=== PATIENT | female | born 1990 | race American Indian/Alaskan Native ===

== ENCOUNTER 2016-10-11 18:58 | Emergency (ER) | payer SELFPAY ==
[2016-10-11 20:44] LABS: Basophils % (Auto) 0.7 % (0.0-1.8); Eosinophils % (Auto) 1.8 % (0.0-4.3); Hematocrit 32.9 % (30.3-42.9); Mean Corpuscular HGB Conc 33 % (30-34); Mean Corpuscular Hemoglobin 31 pg (28-32); Mean Corpuscular Volume 94 fl (79-97); Platelet Count 324 K/mm3 (140-440); Red Blood Count 3.51 M/mm3 (3.65-5.03); White Blood Count 7.4 K/mm3 (4.5-11.0)
[2016-10-11 21:06] LABS: Alanine Aminotransferase 11 units/L (7-56); Alkaline Phosphatase 60 units/L (35-129); Anion Gap 17 mmol/L; Blood Urea Nitrogen 12 mg/dL (7-17); Calcium 9.1 mg/dL (8.4-10.2); Carbon Dioxide 24 mmol/L (22-30); Chloride 103.5 mmol/L (98-107); Glucose 88 mg/dL (65-100); Sodium 140 mmol/L (137-145); Total Protein 7.9 g/dL (6.3-8.2)
[2016-10-11 21:40] LABS: Bacteria,Urine 1+ /HPF (Negative); Bilirubin,Urine NEG (Negative); Blood,Urine MOD (Negative); Ketones,Urine NEG (Negative); Leukocyte Esterase,Urine LG (Negative); Mucus,Urine 3+ /HPF; Nitrite,Urine NEG (Negative)
--- NOTE | 2016-10-11 23:27 | Cat Scan Report ---
FINAL REPORT PROCEDURE: CT HEAD/BRAIN WO CON TECHNIQUE: Computerized tomography of the head was performed without contrast material. HISTORY: syncope COMPARISON: No prior studies are available for comparison. FINDINGS: Skull and scalp: Normal. Paranasal sinuses: Normal. Ventricles and subarachnoid spaces: Normal. Cerebrum: No evidence of hemorrhage, acute infarction or mass . Cerebellum and brainstem: No evidence of hemorrhage, acute infarction or mass. Vasculature: Normal. Comments: None. IMPRESSION: Normal Examination
--- NOTE | 2016-10-12 00:28 | Emergency Department Report ---
HPI - General Chief Complaint: Dizziness Time Seen by Provider: 10/11/16 23:03 - HPI HPI: She is a 26-year-old female with no known medical history presents the ED stating that she had a syncopal episode earlier this morning around 9 AM shows a work. Patient states she was stepping out and walking down the stairs when all of a sudden she blacked out and found this over the bottom of a [address] Patient states she had her one year-old with her when she came to. She denies any chest pain, dizziness, headache prior to blacking out. Patient states she is to episodes of blackout one was in 2014 while she was with her child and the other last year 2015 which she did not seek medical care for. She states she has some pain on her left knee where she thinks she may have hit it. Patient states [facility]. Patient was able to go to work after incident and had no other episodes throughout the day. She denies any fevers/chills/nausea/vomiting/abdominal pains as chest pain or shortness of breath/taken any medications. ED Past Medical Hx - Past Medical History Previous Medical History?: No Hx Hypertension: No Hx Diabetes: No Hx Deep Vein Thrombosis: No Hx Renal Disease: No Hx Sickle Cell Disease: No Hx Seizures: No Hx Asthma: No Hx HIV: No - Surgical History Past Surgical History?: Yes Additional Surgical History: left knee surgery - Social History Smoking Status: Never Smoker Substance Use Type: None - Medications Home Medications: Home Medications Medication Instructions Recorded Confirmed Last Taken Type Vit-Fe Fumar-FA [ 1 tab PO QDAY #30 tablet 10/15/14 Unknown Rx Vitamin] metroNIDAZOLE 0.75% [Metrogel 1 applicatio TP BID #1 tube 10/15/14 Unknown Rx 0.75% TOPICAL] EPINEPHrine [Epipen 2-Sebastien] 0.3 mg IM DAILY PRN #2 ml 03/26/15 Unknown Rx Famotidine [Pepcid] 20 mg PO BID #10 tablet 03/26/15 Unknown Rx diphenhydrAMINE [Benadryl] 50 mg PO Q8HR PRN #20 capsule 03/26/15 Unknown Rx predniSONE [Deltasone] 40 mg PO QDAY #8 tab 03/26/15 Unknown Rx traMADol [Ultram 50 MG tab] 50 mg PO Q6HR PRN #7 tablet 02/12/16 Unknown Rx Nitrofurantoin [place]/M-Cryst 100 mg PO Q12HR #14 capsule 10/12/16 Unknown Rx [Macrobid CAP] ED Review of Systems ROS: Stated complaint: PASS OUT/FELL DOWN STEPS Other details as noted in HPI Constitutional: denies: chills, fever Eyes: denies: eye pain, eye discharge, vision change ENT: denies: ear pain, throat pain Respiratory: denies: cough, shortness of breath, wheezing Cardiovascular: denies: chest pain, palpitations Endocrine: no symptoms reported Gastrointestinal: denies: abdominal pain, nausea, diarrhea Genitourinary: denies: urgency, dysuria, discharge Musculoskeletal: denies: back pain, joint swelling, arthralgia Skin: denies: rash, lesions Neurological: denies: headache, weakness, paresthesias Psychiatric: denies: anxiety, depression Hematological/Lymphatic: denies: easy bleeding, easy bruising Physical Exam - Physical Exam Vital Signs: Vital Signs 10/11/16 10/11/16 10/11/16 19:31 19:49 23:57 Temperature 98.7 F 98.7 F Pulse Rate 55 L 55 L Pulse Rate [ 62 Lying] Pulse Rate [ 70 Sitting] Pulse Rate [ 78 Standing] Respiratory 18 18 Rate Blood Pressure 133/91 Blood Pressure 120/84 [Lying] Blood Pressure 133/91 [Right] Blood Pressure 124/84 [Sitting] Blood Pressure 133/92 [Standing] O2 Sat by Pulse 100 100 Oximetry 10/11/16 23:59 Temperature Pulse Rate 70 Pulse Rate [ Lying] Pulse Rate [ Sitting] Pulse Rate [ Standing] Respiratory 18 Rate Blood Pressure Blood Pressure [Lying] Blood Pressure 124/84 [Right] Blood Pressure [Sitting] Blood Pressure [Standing] O2 Sat by Pulse 100 Oximetry Physical Exam: GENERAL: Alert and oriented x3, no apparent distress, Normal Gait, atraumatic. HEAD: Head is normocephalic and a-traumatic. EYES: Extra ocular muscles are intact. Pupils are equal, round, and reactive to light and accommodation. Sclera white and clear bilaterally, nonerythematous NECK: Supple. Non edematous, No carotid bruits. No lymphadenopathy or thyromegaly. LUNGS: Symetrical with respiration, No wheezing, no rales or crackles, CTAB. HEART: S1, S2 present, regular rate and rhythm without murmur, no rubs, no gallops. Non tender to palpation ABDOMEN: No organomegaly was noted,Positive bowel sounds, soft, and non- distended. . Nontender to palpation on all Quadrants, NO CVA tenderness. EXTREMITIES/MUSCULOSKELETAL: No cyanosis, clubbing, rash, lesions or edema. Full ROM bilaterally. UE/LE Pulses 2+ bilaterally. LE and UE 5+ strength bilaterally, firm grasp bilaterally NEUROLOGIC: The patient is cooperative with no focal neurologic deficits. Cranial nerves II through XII are grossly intact. Normal speech PSYCHIATRIC: Mood is congruent with affect, denies suicidal or homicidal ideations. SKIN: Warm and dry, No lesions, No ulceration or induration present. ED Course Vital Signs 10/11/16 10/11/16 10/11/16 19:31 19:49 23:57 Temperature 98.7 F 98.7 F Pulse Rate 55 L 55 L Pulse Rate [ 62 Lying] Pulse Rate [ 70 Sitting] Pulse Rate [ 78 Standing] Respiratory 18 18 Rate Blood Pressure 133/91 Blood Pressure 120/84 [Lying] Blood Pressure 133/91 [Right] Blood Pressure 124/84 [Sitting] Blood Pressure 133/92 [Standing] O2 Sat by Pulse 100 100 Oximetry 10/11/16 23:59 Temperature Pulse Rate 70 Pulse Rate [ Lying] Pulse Rate [ Sitting] Pulse Rate [ Standing] Respiratory 18 Rate Blood Pressure Blood Pressure [Lying] Blood Pressure 124/84 [Right] Blood Pressure [Sitting] Blood Pressure [Standing] O2 Sat by Pulse 100 Oximetry ED Medical Decision Making - Lab Data Result diagrams: 10/11/16 20:29 10/11/16 20:29 Laboratory Tests 10/11/16 10/11/16 10/11/16 20:29 20:29 21:00 WBC 7.4 RBC 3.51 L Hgb 11.0 Hct 32.9 MCV 94 MCH 31 MCHC 33 RDW 14.0 Plt Count 324 Lymph % (Auto) 30.2 [place] % (Auto) 8.4 H Eos % (Auto) 1.8 Baso % (Auto) 0.7 Lymph # 2.2 [place] # 0.6 Eos # 0.1 Baso # 0.1 Seg Neutrophils % 58.9 Seg Neutrophils # 4.4 D-Dimer Chloride 103.5 Carbon Dioxide 24 Anion Gap 17 BUN 12 Creatinine 0.6 L Estimated GFR > 60 BUN/Creatinine Ratio 20.00 Glucose 88 Calcium 9.1 Total Bilirubin 0.40 AST 18 ALT 11 Alkaline Phosphatase 60 Total Creatine Kinase Troponin T Total Protein 7.9 Albumin 4.0 Albumin/Globulin Ratio 1.0 Urine Color Yellow Urine Turbidity Clear Urine pH 5.0 Ur Specific [place] 1.029 Urine Protein 30 mg/dl Urine Glucose (UA) Neg Urine Ketones Neg Urine Blood Mod Urine Nitrite Neg Ur Reducing Substances Not Reportable Urine Bilirubin Neg Urine Ictotest Not Reportable Urine Urobilinogen 2.0 Ur Leukocyte Esterase Lg Urine WBC (Auto) 72.0 H Urine RBC (Auto) 17.0 U Epithel Cells (Auto) 5.0 Urine Bacteria (Auto) 1+ Urine Mucus 3+ Urine HCG, Qual Negative 10/12/16 10/12/16 01:26 01:26 WBC RBC Hgb Hct MCV MCH MCHC RDW Plt Count Lymph % (Auto) [place] % (Auto) Eos % (Auto) Baso % (Auto) Lymph # [place] # Eos # Baso # Seg Neutrophils % Seg Neutrophils # D-Dimer 352.34 H Chloride Carbon Dioxide Anion Gap BUN Creatinine Estimated GFR BUN/Creatinine Ratio Glucose Calcium Total Bilirubin AST ALT Alkaline Phosphatase Total Creatine Kinase 148 H Troponin T < 0.010 Total Protein Albumin Albumin/Globulin Ratio Urine Color Urine Turbidity Urine pH Ur Specific [place] Urine Protein Urine Glucose (UA) Urine Ketones Urine Blood Urine Nitrite Ur Reducing Substances Urine Bilirubin Urine Ictotest Urine Urobilinogen Ur Leukocyte Esterase Urine WBC (Auto) Urine RBC (Auto) U Epithel Cells (Auto) Urine Bacteria (Auto) Urine Mucus Urine HCG, Qual - Radiology Data Radiology results: report reviewed, image reviewed FINAL REPORT PROCEDURE: CT ANGIO CHEST TECHNIQUE: Computerized tomographic angiography of the chest was performed after the IV injection of iodinated nonionic contrast including image processing. The image data was postprocessed using 2-dimensional multiplanar reformatted (MPR) and 3-dimensional (MIP and/or volume rendered) techniques. HISTORY: syncope COMPARISON: No prior studies are available for comparison. FINDINGS: Heart and pericardium: Normal. Thoracic aorta: Normal. Pulmonary vasculature: Normal. Lymph nodes: No enlarged thoracic lymph nodes. Lungs: Normal. Pleural space: No effusion, thickening, or pneumothorax. Musculoskeletal structures: No significant abnormality. Upper abdominal structures: No significant abnormality. IMPRESSION: The lungs are clear without infiltrate, effusion or pneumothorax. There is no evidence of pulmonary arterial emboli. Transcribed By: [facility] Dictated By: BRIONNA CORONA MD Electronically Authenticated By: BRIONNA CORONA MD Signed Date/Time: 10/12/16 1854 FINAL REPORT PROCEDURE: CT HEAD/BRAIN WO CON TECHNIQUE: Computerized tomography of the head was performed without contrast material. HISTORY: syncope COMPARISON: No prior studies are available for comparison. FINDINGS: Skull and scalp: Normal. Paranasal sinuses: Normal. Ventricles and subarachnoid spaces: Normal. Cerebrum: No evidence of hemorrhage, acute infarction or mass . Cerebellum and brainstem: No evidence of hemorrhage, acute infarction or mass. Vasculature: Normal. Comments: None. IMPRESSION: Normal Examination Transcribed By: [facility] Dictated By: BRIONNA CORONA MD Electronically Authenticated By: BRIONNA CORONA MD Signed Date/Time: 10/11/16 4081 - Medical Decision Making 26-year-old female presents with syncopal episode. ED course: Patient is in no acute or respiratory distress. Vital signs stable. Patient reports feeling better and is in no pain. CBC: Within normal limits CMP:within normal limits Cardiac enzymes negative, d-dimer elevated. CT obtained CT showed no signs of pulmonary embolism Discussed this with the patient. Discussed the patient if any new symptoms to return Urinalysis was significant for bacteria, moderate leukocyte esterase. Called Lab got NA/CL numbers- Na- 140 CL- 103.5 UPT: Negative EKG: See above Head CT: No evidence of acute intracranial process Discussed with patient lab findings -see above Patient is a low risk due to [place] syncopy rule. Patient has no history of congestive heart failure, hematocrit greater than 30, EKG within normal limits, denies shortness of breath and systolic pressure greater than 90. Orthostatic blood pressure: Normal Patient states she understands and will comply to follow-up. Senior Property Accountant referral given and primary care physician referral given Discussed with patient if she has some nonspecific episodes return to ED. Critical care attestation.: If time is entered above; I have spent that time in minutes in the direct care of this critically ill patient, excluding procedure time. ED Disposition Clinical Impression: Episode of syncope Qualifiers: Syncope type: unspecified Qualified Code(s): R55 - Syncope and collapse UTI (urinary tract infection) Qualifiers: Urinary tract infection type: acute cystitis Hematuria presence: without hematuria Qualified Code(s): N30.00 - Acute cystitis without hematuria Disposition: TO HOME OR SELFCARE Is pt being admited?: No Does the pt Need Aspirin: No Condition: Stable Instructions: Urinary Tract Infection in Women (ED), Syncope (ED) Additional Instructions: If any symptoms return to ED If worsening symptoms return to ED Please follow up with referrals as given. Prescriptions: Nitrofurantoin [place]/M-Cryst [Macrobid CAP] 100 mg PO Q12HR #14 capsule Referrals: KEAGAN SHAW MD [Staff Physician] - 3-5 Days PRIMARY CAREMD [Primary Care Provider] - 3-5 Days NISHANT CRAFT MD [Staff Physician] - 3-5 Days YAZMIN HEARN MD [Referring] - 3-5 Days [facility] [Outside] - 3-5 Days Forms: Work/School Release Form Time of Disposition: 04:44
[2016-10-12 02:45] LABS: Creatine Kinase 148 units/L (30-135)
--- NOTE | 2016-10-12 04:30 | Cat Scan Report ---
FINAL REPORT PROCEDURE: CT ANGIO CHEST TECHNIQUE: Computerized tomographic angiography of the chest was performed after the IV injection of iodinated nonionic contrast including image processing. The image data was postprocessed using 2-dimensional multiplanar reformatted (MPR) and 3-dimensional (MIP and/or volume rendered) techniques. HISTORY: syncope COMPARISON: No prior studies are available for comparison. FINDINGS: Heart and pericardium: Normal. Thoracic aorta: Normal. Pulmonary vasculature: Normal. Lymph nodes: No enlarged thoracic lymph nodes. Lungs: Normal. Pleural space: No effusion, thickening, or pneumothorax. Musculoskeletal structures: No significant abnormality. Upper abdominal structures: No significant abnormality. IMPRESSION: The lungs are clear without infiltrate, effusion or pneumothorax. There is no evidence of pulmonary arterial emboli.
[2016-10-12] MEDS ORDERED: NACL ONE (04:44)
[2016-10-12 05:31] VITALS: BP 121/72
--- NOTE | 2016-10-12 07:31 | XRay Report ---
LEFT KNEE, 2 views: History: Left knee pain and swelling after fall The bony architecture is intact without evidence of fracture or dislocation. No significant soft tissue abnormality is seen. IMPRESSION: Normal left knee.
== END 2016-10-12 05:31 | disposition home or self-care (01) ==
LOC: ED 18:58
DX: R55 Syncope and collapse (principal); N30.00 Acute cystitis without hematuria; W10.9XXA Fall (on) (from) unspecified stairs and steps, initial encounter; Y93.89 Activity, other specified; Y99.9 Unspecified external cause status; Y92.89 Other specified places as the place of occurrence of the external cause
CPT/HCPCS: 36415; 70450; 71275; 73560; 80053; 81001; 81025; 82550; 84484; 85025; 85379; 93005; 93010; 99285; Q9967

== ENCOUNTER 2017-04-15 16:51 | Emergency (ER) | payer OTHER ==
--- NOTE | 2017-04-15 21:02 | Emergency Department Report ---
ED Female HPI - General Chief complaint: Abdominal Pain Stated complaint: ABD/VAGINAL PAIN Time Seen by Provider: 04/15/17 20:08 Source: patient Mode of arrival: Ambulatory Limitations: No Limitations - History of Present Illness Initial comments: 27-year-old female with no significant past medical history presents complaining of vaginal discharge, burning with urination, vaginal bleeding, and lower abdominal pain 2 days. Symptoms are intermittent and worse palpation, urination, and sitting. It is rated 10/10 in intensity when pain occurs. Patient is sexually active with last unprotected sexual intercourse March 22 with a regular partner. No documented fever, nausea, vomiting, or diarrhea. LMP 03/09/2017. [facility] doctor [facility] - Related Data Previous Rx's Medication Instructions Recorded Last Taken Type metroNIDAZOLE 0.75% [Metrogel 1 applicatio TP BID #1 tube 10/15/14 Unknown Rx 0.75% TOPICAL] EPINEPHrine [Epipen 2-Sebastien] 0.3 mg IM DAILY PRN #2 ml 03/26/15 Unknown Rx Famotidine [Pepcid] 20 mg PO BID #10 tablet 03/26/15 Unknown Rx diphenhydrAMINE [Benadryl] 50 mg PO Q8HR PRN #20 capsule 03/26/15 Unknown Rx predniSONE [Deltasone] 40 mg PO QDAY #8 tab 03/26/15 Unknown Rx traMADol [Ultram 50 MG tab] 50 mg PO Q6HR PRN #7 tablet 02/12/16 Unknown Rx Nitrofurantoin [place]/M-Cryst 100 mg PO Q12HR #14 capsule 10/12/16 Unknown Rx [Macrobid CAP] Vit-Fe Fumar-FA [ 1 tab PO QDAY #30 tablet 04/15/17 Unknown Rx Vitamin] metroNIDAZOLE [Flagyl] 500 mg PO Q12HR #14 tab 04/15/17 Unknown Rx Allergies Allergy/AdvReac Type Severity Reaction Status Date / Time [place] Allergy Angioedema Verified 04/15/17 16:55 NUTS Allergy Anaphylaxis Uncoded 02/12/16 07:33 ED Review of Systems ROS: Stated complaint: ABD/VAGINAL PAIN Other details as noted in HPI Comment: All other systems reviewed and negative Other: Constitutional: No fevers chills Eyes: No eye pain visual changes ENT: No ear pain or throat pain Neck: Denies pain Respiratory: Denies cough wheezing shortness of breath a Cardiovascular: Denies chest pain, palpitations, syncope GI: Denies nausea, vomiting, diarrhea, constipation, melena hematochezia : as per hpi Musculoskeletal: Denies back pain, joint swelling Skin: Denies rash, lesions, erythema Neurologic: Denies headache, numbness, weakness Psychiatric: Denies suicidal ideation, hallucinations ED Past Medical Hx - Past Medical History Hx Hypertension: No Hx Diabetes: No Hx Deep Vein Thrombosis: No Hx Renal Disease: No Hx Sickle Cell Disease: No Hx Seizures: No Hx Asthma: No Hx HIV: No - Surgical History Additional Surgical History: left knee surgery - Social History Smoking Status: Never Smoker Substance Use Type: None - Medications Home Medications: Home Medications Medication Instructions Recorded Confirmed Last Taken Type metroNIDAZOLE 0.75% [Metrogel 1 applicatio TP BID #1 tube 10/15/14 Unknown Rx 0.75% TOPICAL] EPINEPHrine [Epipen 2-Sebastien] 0.3 mg IM DAILY PRN #2 ml 03/26/15 Unknown Rx Famotidine [Pepcid] 20 mg PO BID #10 tablet 03/26/15 Unknown Rx diphenhydrAMINE [Benadryl] 50 mg PO Q8HR PRN #20 capsule 03/26/15 Unknown Rx predniSONE [Deltasone] 40 mg PO QDAY #8 tab 03/26/15 Unknown Rx traMADol [Ultram 50 MG tab] 50 mg PO Q6HR PRN #7 tablet 02/12/16 Unknown Rx Nitrofurantoin [place]/M-Cryst 100 mg PO Q12HR #14 capsule 10/12/16 Unknown Rx [Macrobid CAP] Vit-Fe Fumar-FA [ 1 tab PO QDAY #30 tablet 04/15/17 Unknown Rx Vitamin] metroNIDAZOLE [Flagyl] 500 mg PO Q12HR #14 tab 04/15/17 Unknown Rx ED Physical Exam - General Limitations: No Limitations - Other Other exam information: General: No limitations, patient is alert in no acute distress Head exam: Atraumatic, normocephalic Eyes exam: Normal appearance ENT: Moist mucous membrane, normal oropharynx Neck exam: Normal inspection, full range of motion Respiratory exam: Clear to auscultation bilateral, no wheezes, rales, crackles Cardiovascular: Normal rate and rhythm, normal heart sounds Abdomen: Soft, nondistended, suprapubic tenderness, with normal bowel sounds, no rebound, or guarding : white vaginal discharge, no CMT or adnexal tenderness. No external or cervical lesions noted. Extremity: Full range of motion normal inspection no deformity Back: Normal Inspection, full range of motion, no tenderness Neurologic: Alert, oriented x3, cranial nerves intact, no motor or sensory deficit Psychiatric: normal affect, normal mood Skin: Warm, dry, intact ED Course Vital Signs 04/15/17 04/15/17 04/15/17 16:55 21:00 23:38 Temperature 98 F 98 F Pulse Rate 90 88 72 Respiratory 20 16 16 Rate Blood Pressure 142/88 Blood Pressure 134/78 117/69 [Left] O2 Sat by Pulse 100 100 100 Oximetry ED Medical Decision Making - Lab Data Result diagrams: 04/15/17 21:31 Lab Results 04/15/17 04/15/17 04/15/17 Range/Units 20:50 21:31 21:31 WBC 7.1 (4.5-11.0) K/mm3 RBC 3.39 L (3.65-5.03) M/mm3 Hgb 10.7 (10.1-14.3) gm/dl Hct 31.8 (30.3-42.9) % MCV 94 (79-97) fl MCH 32 (28-32) pg MCHC 34 (30-34) % RDW 15.0 (13.2-15.2) % Plt Count 282 (140-440) K/mm3 Lymph % (Auto) 30.8 (13.4-35.0) % [place] % (Auto) 7.7 H (0.0-7.3) % Eos % (Auto) 1.9 (0.0-4.3) % Baso % (Auto) 0.8 (0.0-1.8) % Lymph # 2.2 (1.2-5.4) K/mm3 [place] # 0.5 (0.0-0.8) K/mm3 Eos # 0.1 (0.0-0.4) K/mm3 Baso # 0.1 (0.0-0.1) K/mm3 Seg Neutrophils % 58.8 (40.0-70.0) % Seg Neutrophils # 4.2 (1.8-7.7) K/mm3 HCG, Quant 6351 H (0-4) mIU/mL Urine Color Yellow (Yellow) Urine Turbidity Clear (Clear) Urine pH 6.0 (5.0-7.0) Ur Specific [place] 1.028 (1.003-1.030) Urine Protein <15 mg/dl (Negative) mg/dL Urine Glucose (UA) Neg (Negative) mg/dL Urine Ketones Neg (Negative) mg/dL Urine Blood Neg (Negative) Urine Nitrite Neg (Negative) Urine Bilirubin Neg (Negative) Urine Urobilinogen 2.0 (<2.0) mg/dL Ur Leukocyte Esterase Tr (Negative) Urine WBC (Auto) 3.0 (0.0-6.0) /HPF Urine RBC (Auto) 3.0 (0.0-6.0) /HPF U Epithel Cells (Auto) 14.0 H (0-13.0) /HPF Urine Bacteria (Auto) 2+ (Negative) /HPF Urine Mucus 2+ /HPF Urine HCG, Qual Positive A (Negative) Blood Type Antibody Screen 04/15/17 Range/Units 21:31 WBC (4.5-11.0) K/mm3 RBC (3.65-5.03) M/mm3 Hgb (10.1-14.3) gm/dl Hct (30.3-42.9) % MCV (79-97) fl MCH (28-32) pg MCHC (30-34) % RDW (13.2-15.2) % Plt Count (140-440) K/mm3 Lymph % (Auto) (13.4-35.0) % [place] % (Auto) (0.0-7.3) % Eos % (Auto) (0.0-4.3) % Baso % (Auto) (0.0-1.8) % Lymph # (1.2-5.4) K/mm3 [place] # (0.0-0.8) K/mm3 Eos # (0.0-0.4) K/mm3 Baso # (0.0-0.1) K/mm3 Seg Neutrophils % (40.0-70.0) % Seg Neutrophils # (1.8-7.7) K/mm3 HCG, Quant (0-4) mIU/mL Urine Color (Yellow) Urine Turbidity (Clear) Urine pH (5.0-7.0) Ur Specific [place] (1.003-1.030) Urine Protein (Negative) mg/dL Urine Glucose (UA) (Negative) mg/dL Urine Ketones (Negative) mg/dL Urine Blood (Negative) Urine Nitrite (Negative) Urine Bilirubin (Negative) Urine Urobilinogen (<2.0) mg/dL Ur Leukocyte Esterase (Negative) Urine WBC (Auto) (0.0-6.0) /HPF Urine RBC (Auto) (0.0-6.0) /HPF U Epithel Cells (Auto) (0-13.0) /HPF Urine Bacteria (Auto) (Negative) /HPF Urine Mucus /HPF Urine HCG, Qual (Negative) Blood Type A POSITIVE Antibody Screen Negative - Radiology Data Radiology results: report reviewed /transvag us: single IUP 5wks 6 days. fh 127, very small subchorionic bleed. 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 ED Disposition Clinical Impression: BV (bacterial vaginosis), 5 weeks gestation of , Subchorionic hemorrhage in first trimester Disposition: DC-01 TO HOME OR SELFCARE Is pt being admited?: No Does the pt Need Aspirin: No Condition: Stable Instructions: Bacterial Vaginosis (ED), Abdominal Pain (ED) Additional Instructions: You are currently 5 week in 6 days by ultrasound. Ultrasound shows a small area of blood in the uterus which may result and vaginal spotting. Return to the ER if significant pain or bleeding greater one pad per hour. Otherwise take the antibiotic as prescribed for your bacteria vaginosis and follow-up with your E[facility]ER doctor for further treatment. Take Tylenol only as needed for pain.Your gonorrhea and chlamydia tests are pending and take approximately 3-4 days result. You may obtain results in medical records with a photo ID. You may also obtain results through the follow-up doctor office via medical record request. Prescriptions: metroNIDAZOLE [Flagyl] 500 mg PO Q12HR #14 tab Vit-Fe Fumar-FA [ Vitamin] 1 tab PO QDAY #30 tablet Referrals: [facility] [Provider Group] - 3-5 Days Forms: STI Treatment and Prevention Time of Disposition: 23:53
[2017-04-15 21:08] LABS: Bacteria,Urine 2+ /HPF (Negative); Bilirubin,Urine NEG (Negative); Blood,Urine NEG (Negative); Color,Urine Yellow (Yellow); Mucus,Urine 2+ /HPF; Nitrite,Urine NEG (Negative); Protein,Urine <15 mg/dL mg/dL (Negative)
[2017-04-15 21:11] LABS: HCG Qualitative,Urine Positive (Negative)
[2017-04-15] MEDS ORDERED: FLAGYL PO ONE (21:22)
[2017-04-15 21:48] LABS: Basophils # (Auto) 0.1 K/mm3 (0.0-0.1); Basophils % (Auto) 0.8 % (0.0-1.8); Eosinophils # (Auto) 0.1 K/mm3 (0.0-0.4); Eosinophils % (Auto) 1.9 % (0.0-4.3); Hematocrit 31.8 % (30.3-42.9); Hemoglobin 10.7 gm/dl (10.1-14.3); Lymphocytes # (Auto) 2.2 K/mm3 (1.2-5.4); Lymphocytes % (Auto) 30.8 % (13.4-35.0); Mean Corpuscular HGB Conc 34 % (30-34); Mean Corpuscular Hemoglobin 32 pg (28-32); Mean Corpuscular Volume 94 fl (79-97); Monocytes # (Auto) 0.5 K/mm3 (0.0-0.8); Monocytes % (Auto) 7.7 % (0.0-7.3); Platelet Count 282 K/mm3 (140-440); Red Blood Count 3.39 M/mm3 (3.65-5.03)
--- NOTE | 2017-04-15 23:26 | Ultrasound Report ---
FINAL REPORT EXAM: US OB < = 14 WEEKS FETUS HISTORY: pelvic pain + LMP 03/06/2017, cramping TECHNIQUE: Trans-vaginal and transvesical pelvic sonographic imaging Comparison: None FINDINGS: Images demonstrate the urinary bladder to be incompletely distended in of assessment of the transvesical imaging. Endovaginal imaging demonstrates normally anteverted uterus to measure 9.2 x 5.1 x 4.5 centimeters. High within the uterine fundus, there is a gestational sac identified. Within the gestational sac there is a pole and yolk sac. By crown-rump length of 2.7 millimeters, estimated gestational age is 5 weeks 6 days. heart rate measures 127 beats per minute. There is a small subchorionic bleed identified measuring approximately 5 millimeters. There is minimal free pelvic fluid in the cul-de-sac. Right ovary measures 2.0 x 1.3 x 1.2 centimeters. The left ovary measures 4.3 x 3.2 x 3.5 centimeters. Both ovaries demonstrate normal color flow. There is a 2.5 centimeter left ovarian cyst most compatible with a corpus luteal cyst of . IMPRESSION: Single live intrauterine gestation at 5 weeks 6 days with estimated due date of 12/10/2017. heart rate measures 127 beats per minute. There is a very small subchorionic bleed. There is a left ovarian 2 point centimeters cyst most compatible with corpus luteal cyst of . There is trace cul-de-sac free fluid.
--- NOTE | 2017-04-15 23:27 | Ultrasound Report ---
FINAL REPORT EXAM: US OB TRANSVAGINAL HISTORY: pelvic pain + TECHNIQUE: Transvesical and endovaginal obstetrical sonographic imaging FINDINGS: Images demonstrate the urinary bladder to be incompletely distended in of assessment of the transvesical imaging. Endovaginal imaging demonstrates normally anteverted uterus to measure 9.2 x 5.1 x 4.5 centimeters. High within the uterine fundus, there is a gestational sac identified. Within the gestational sac there is a pole and yolk sac. By crown-rump length of 2.7 millimeters, estimated gestational age is 5 weeks 6 days. heart rate measures 127 beats per minute. There is a small subchorionic bleed identified measuring approximately 5 millimeters. There is minimal free pelvic fluid in the cul-de-sac. Right ovary measures 2.0 x 1.3 x 1.2 centimeters. The left ovary measures 4.3 x 3.2 x 3.5 centimeters. Both ovaries demonstrate normal color flow. There is a 2.5 centimeter left ovarian cyst most compatible with a corpus luteal cyst of . IMPRESSION: Single live intrauterine gestation at 5 weeks 6 days with estimated due date of 12/10/2017. heart rate measures 127 beats per minute. There is a very small subchorionic bleed. There is a left ovarian 2 point centimeters cyst most compatible with corpus luteal cyst of . There is trace cul-de-sac free fluid.
[2017-04-15 23:39] VITALS: BP 117/69
== END 2017-04-16 | disposition home or self-care (01) ==
LOC: ED 16:51
DX: O23.591 Infection of other part of genital tract in pregnancy, first trimester (principal); N76.0 Acute vaginitis; O46.8X1 Other antepartum hemorrhage, first trimester; Z3A.01 Less than 8 weeks gestation of pregnancy; Z91.048 Other nonmedicinal substance allergy status
CPT/HCPCS: 36415; 76801; 76817; 81001; 81025; 84702; 85025; 86850; 86900; 86901; 87210; 87591

== ENCOUNTER 2017-11-29 07:55 | Emergency (ER) | payer OTHER ==
[2017-11-29 11:09] LABS: HCG Qualitative,Urine Negative (Negative)
--- NOTE | 2017-11-29 11:27 | Emergency Department Report ---
ED General Adult HPI - General Chief complaint: Chest Pain Stated complaint: CHEST PAINS/SOB Time Seen by Provider: 11/29/17 09:55 Source: patient Mode of arrival: Ambulatory Limitations: No Limitations - History of Present Illness Initial comments: Patient is a 27-year-old [place] who is having some left shoulder and left anterior chest discomfort. Patient states is been present for the last day or 2. Patient states it hurts worse when she is moving her shoulder. Patient denies any cough cold congestion fevers or chills. Patient did have 1 episode where she woke up choking several days ago and she believes this may be related. Severity scale (0 -10): 6 Quality: aching Consistency: constant Associated Symptoms: chest pain, other. denies: confusion, cough, diaphoresis, headaches, loss of appetite, malaise, nausea/vomiting, rash, seizure, shortness of breath, syncope, weakness - Related Data Previous Rx's Medication Instructions Recorded Last Taken Type metroNIDAZOLE 0.75%(NF) [Metrogel 1 applicatio TP BID #1 tube 10/15/14 Unknown Rx 0.75% TOPICAL] EPINEPHrine [Epipen 2-Sebastien] 0.3 mg IM DAILY PRN #2 ml 03/26/15 Unknown Rx Famotidine [Pepcid] 20 mg PO BID #10 tablet 03/26/15 Unknown Rx diphenhydrAMINE [Benadryl] 50 mg PO Q8HR PRN #20 capsule 03/26/15 Unknown Rx predniSONE [Deltasone] 40 mg PO QDAY #8 tab 03/26/15 Unknown Rx traMADol [Ultram 50 MG tab] 50 mg PO Q6HR PRN #7 tablet 02/12/16 Unknown Rx Nitrofurantoin [place]/M-Cryst 100 mg PO Q12HR #14 capsule 10/12/16 Unknown Rx [Macrobid CAP] Vit-Fe Fumar-FA [ 1 tab PO QDAY #30 tablet 04/15/17 Unknown Rx Vitamin] metroNIDAZOLE [Flagyl] 500 mg PO Q12HR #14 tab 04/15/17 Unknown Rx HYDROcodone/APAP 5-325 [[place]arrison 1 each PO Q4HR PRN #12 tablet 11/29/17 Unknown Rx 5/325] Ibuprofen [Motrin] 800 mg PO Q8HR PRN #20 tablet 11/29/17 Unknown Rx methOCARBAMOL [Robaxin TAB] 500 mg PO Q6H PRN #15 tablet 11/29/17 Unknown Rx Allergies Allergy/AdvReac Type Severity Reaction Status Date / Time walnut Allergy Angioedema Verified 04/15/17 16:55 NUTS Allergy Anaphylaxis Uncoded 02/12/16 07:33 ED Review of Systems ROS: Stated complaint: CHEST PAINS/SOB Other details as noted in HPI Comment: All other systems reviewed and negative ED Past Medical Hx - Past Medical History Previous Medical History?: Yes Hx Hypertension: No Hx Diabetes: No Hx Deep Vein Thrombosis: No Hx Renal Disease: No Hx Sickle Cell Disease: No Hx Seizures: No Hx Asthma: No Hx HIV: No - Surgical History Past Surgical History?: Yes Additional Surgical History: left knee surgery - Social History Smoking Status: Never Smoker Substance Use Type: Alcohol - Medications Home Medications: Home Medications Medication Instructions Recorded Confirmed Last Taken Type metroNIDAZOLE 0.75%(NF) [Metrogel 1 applicatio TP BID #1 tube 10/15/14 Unknown Rx 0.75% TOPICAL] EPINEPHrine [Epipen 2-Sebastien] 0.3 mg IM DAILY PRN #2 ml 03/26/15 Unknown Rx Famotidine [Pepcid] 20 mg PO BID #10 tablet 03/26/15 Unknown Rx diphenhydrAMINE [Benadryl] 50 mg PO Q8HR PRN #20 capsule 03/26/15 Unknown Rx predniSONE [Deltasone] 40 mg PO QDAY #8 tab 03/26/15 Unknown Rx traMADol [Ultram 50 MG tab] 50 mg PO Q6HR PRN #7 tablet 02/12/16 Unknown Rx Nitrofurantoin [place]/M-Cryst 100 mg PO Q12HR #14 capsule 10/12/16 Unknown Rx [Macrobid CAP] Vit-Fe Fumar-FA [ 1 tab PO QDAY #30 tablet 04/15/17 Unknown Rx Vitamin] metroNIDAZOLE [Flagyl] 500 mg PO Q12HR #14 tab 04/15/17 Unknown Rx HYDROcodone/APAP 5-325 [[place] 1 each PO Q4HR PRN #12 tablet 11/29/17 Unknown Rx 5/325] Ibuprofen [Motrin] 800 mg PO Q8HR PRN #20 tablet 11/29/17 Unknown Rx methOCARBAMOL [Robaxin TAB] 500 mg PO Q6H PRN #15 tablet 11/29/17 Unknown Rx ED Physical Exam - General Limitations: No Limitations General appearance: alert, in no apparent distress - Head Head exam: Present: atraumatic, normocephalic - Eye Eye exam: Present: normal appearance - ENT ENT exam: Present: mucous membranes moist - Neck Neck exam: Present: normal inspection - Respiratory Respiratory exam: Present: normal lung sounds bilaterally. Absent: respiratory distress, wheezes, rales, rhonchi - Cardiovascular Cardiovascular Exam: Present: regular rate, normal rhythm. Absent: systolic murmur, diastolic murmur, rubs, gallop - GI/Abdominal GI/Abdominal exam: Present: soft, normal bowel sounds - Extremities Exam Extremities exam: Present: normal inspection, other - Back Exam Back exam: Present: normal inspection - Neurological Exam Neurological exam: Present: alert, oriented X3 - Psychiatric Psychiatric exam: Present: normal affect, normal mood - Skin Skin exam: Present: warm, dry, intact, normal color. Absent: rash ED Course Vital Signs 11/29/17 09:00 Temperature 99.4 F Pulse Rate 78 Respiratory 18 Rate Blood Pressure 128/90 O2 Sat by Pulse 100 Oximetry ED Medical Decision Making - EKG Data -: EKG Interpreted by Me EKG shows normal: sinus rhythm, axis, intervals, QRS complexes, ST-T waves Rate: normal - EKG Data Interpretation: normal EKG - Radiology Data interpreted by me: Patient's x-ray of the chest shows no acute process in the lungs. There is slight increase joint space widening left compared to right in regards to the shoulders - Medical Decision Making Patient likely with some muscle skeletal pain from overuse of the left shoulder from work. Patient does have a mild left shoulder joint effusion. Patient also could have a possible tear to the rotator cuff. Patient will be given pain meds as been given instructions R Rice therapy and follow-up with orthopedics. Critical care attestation.: If time is entered above; I have spent that time in minutes in the direct care of this critically ill patient, excluding procedure time. ED Disposition Clinical Impression: Shoulder injury Qualifiers: Encounter type: initial encounter Laterality: left Qualified Code(s): S49.92XA - Unspecified injury of left shoulder and upper arm, initial encounter Disposition: TO HOME OR SELFCARE Is pt being admited?: No Does the pt Need Aspirin: No Condition: Stable Instructions: Musculoskeletal Pain (ED), RICE Therapy (ED) Referrals: LACY LEWIS MD [Staff Physician] - 3-5 Days Forms: Work/School Release Form(ED) Time of Disposition: 11:27
--- NOTE | 2017-11-29 11:36 | XRay Report ---
AP CHEST: HISTORY: chest pain AP view of the chest demonstrates a normal mediastinal and cardiac contour with clear lungs and normal bony and soft tissue structures. IMPRESSION: Unremarkable AP chest.
[2017-11-29 11:49] VITALS: BP 121/78
== END 2017-11-29 11:47 | disposition home or self-care (01) ==
LOC: ED 07:55
DX: S49.92XA Unspecified injury of left shoulder and upper arm, initial encounter (principal); Z91.09 Other allergy status, other than to drugs and biological substances; X50.0XXA Overexertion from strenuous movement or load, initial encounter; Y93.89 Activity, other specified; Y99.0 Civilian activity done for income or pay; Y92.520 Airport as the place of occurrence of the external cause
CPT/HCPCS: 71045; 81025; 93005; 93010

== ENCOUNTER 2018-08-11 18:57 | Emergency (ER) | payer OTHER ==
[2018-08-11] MEDS ORDERED: DELTASONE PO ONE (20:11)
[2018-08-11] MEDS ORDERED: NORCO 5/325 PO ONE (20:11)
[2018-08-11] MEDS ORDERED: FLEXERIL PO ONE (20:11)
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
[2018-08-11 20:35] VITALS: BP 132/87
== END 2018-08-11 20:33 | disposition home or self-care (01) ==
LOC: ED 18:57
DX: S46.819A Strain of other muscles, fascia and tendons at shoulder and upper arm level, unspecified arm, initial encounter (principal); S86.819A Strain of other muscle(s) and tendon(s) at lower leg level, unspecified leg, initial encounter; Z91.010 Allergy to peanuts; V89.2XXA Person injured in unspecified motor-vehicle accident, traffic, initial encounter; Y93.89 Activity, other specified; Y92.488 Other paved roadways as the place of occurrence of the external cause; Y99.8 Other external cause status
CPT/HCPCS: 99282; J7512

== ENCOUNTER 2019-01-30 10:58 | Emergency (ER) | payer OTHER ==
[2019-01-30 11:24] VITALS: BP 116/82
--- NOTE | 2019-01-30 11:28 | Emergency Department Report ---
Chief Complaint: Shoulder Injury Stated Complaint: UNABLE TO MOVE LEFT SHOULDER Time Seen by Provider: 01/30/19 11:10 - HPI History of Present Illness: 28 y o female presents t ED cc of left shoulder pain x some months now she states that she was refered to a physical therapist but no relief She denies any injuries, trauma or fall to shoulder SHe denies chest pain,sob, loss of sensation or weakness - ROS Review of Systems: all systems reviewed and negative - Exam Vital Signs: Vital Signs 01/30/19 11:19 Temperature 98.2 F Pulse Rate 87 Respiratory 20 Rate Blood Pressure 116/82 O2 Sat by Pulse 99 Oximetry Physical Exam: EXT: full ROM, pain with palpation of shoulder, no swelling, erythema or deformity noted to bilateral upper extremities. MSE screening note: Focused history and physical exam performed. Due to findings the following was ordered: ED Medical Decision Making - Medical Decision Making 28 y o female presents with shoulder pain secondary to strain or tendonitis Discussed with pt this is a chronic issue and non medical emergency and can follow up with orthopedics refferal given to patient Vital signs nml, no acute distress ED Disposition for MSE Clinical Impression: Left shoulder tendonitis Disposition: Z-07 MED SCREENING EXAM-LEFT Is pt being admited?: No Does the pt Need Aspirin: No Condition: Stable Instructions: Tendinitis (ED) Referrals: [facility] [Provider Group] - 3-5 Days LACY LEWIS MD [Staff Physician] - 3-5 Days Forms: Work/School Release Form(ED) Time of Disposition: 11:26
== END 2019-01-30 11:44 | disposition left against medical advice (07) ==
LOC: ED 10:58
DX: M77.9 Enthesopathy, unspecified (principal); Z91.018 Allergy to other foods
CPT/HCPCS: 99281